=== PATIENT | female | born 1955 | race Two or more races ===

== ENCOUNTER 2020-03-16 08:36 | Outpatient (CLI) | payer OTHER | END 2020-03-16 08:42 | disposition home or self-care (01) | LOC: NUCLEAR 08:36 | PROVIDERS: ATTEND Internal Medicine Cardiovascular Disease | DX: R07.89 Other chest pain (principal); R94.31 Abnormal electrocardiogram [ECG] [EKG] | CPT/HCPCS: 78452; 93017; A9500; J0153 ==